=== PATIENT | male | born 1985 | race Two or more races ===

== ENCOUNTER 2016-09-04 16:25 | Emergency (ER) | payer SELFPAY ==
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
== END 2016-09-04 17:38 | disposition home or self-care (01) ==
LOC: ER 16:25
DX: S21.152A Open bite of left front wall of thorax without penetration into thoracic cavity, initial encounter (principal); S60.511A Abrasion of right hand, initial encounter; Y04.1XXA Assault by human bite, initial encounter